=== PATIENT | male | born 1970 | race Caucasian/White ===

== ENCOUNTER 2021-09-04 18:44 | Emergency (ER) | payer BC, OTHER ==
[~2021-09-04] VITALS: Ht 177.8 cm; Wt 79.0 kg
[2021-09-04] MEDS ORDERED: LIDOCAINE 2% JELLY 11ml (GLYDO) ONE (19:04)
[2021-09-04] MEDS ORDERED: LIDOCAINE 2% JELLY 11ml (GLYDO) UR ONE (19:15)
[2021-09-04 19:53] LABS: Urine Bacteria NONE SEEN /hpf (None Seen); Urine Blood 2+ /uL (Negative); Urine Mucus FEW (None Seen); Urine Specific Gravity 1.029 (1.001-1.035); Urine WBC 4 /hpf (0 - 3)
[2021-09-04 21:32] LABS: Basophils # (auto) 0 10 ^3/uL (0-0.2); Basophils % (auto) 0.4 % (0.0-2.0); Eosinophils # (auto) 0.3 10 ^3/uL (0-0.8); Hemoglobin 15.1 g/dL (13.5-17.5); Lymphocytes # (auto) 0.6 10 ^3/uL (0.4-5.4); Lymphocytes % (auto) 7.2 % (10.0-50.0); Mean Corpuscular Hemoglobin 28.5 pg (28.0-32.0); Mean Corpuscular Hgb Conc. 32.1 g/dL (32.0-36.0); Mean Corpuscular Volume 88.7 fL (80.0-100.0); Monocytes # (auto) 0.7 10 ^3/uL (0-1.3); Monocytes % (auto) 7.8 % (0.0-12.0); Neutrophils # (auto) 7.1 10 ^3/uL (1.6-8.6); Neutrophils % (auto) 81.6 % (37.0-80.0); Nucleated Red Blood Cells % 0.1 %; Red Cell Distribution Width 14.6 % (11.8-14.3); White Blood Cell 8.7 10^3/uL (4.4-10.8)
[2021-09-04 21:48] LABS: Albumin 3.9 g/dL (3.4-5.0)
[2021-09-04 21:52] LABS: BUN/Creatinine Ratio 17.3; Bilirubin, Total 0.4 mg/dL (0.2-1.0); Total Protein 7.2 g/dL (6.4-8.2)
[2021-09-05 08:04] VITALS: BP 106/62
== END 2021-09-05 08:47 | disposition home or self-care (01) ==
LOC: ER 18:44
DX: N13.9 Obstructive and reflux uropathy, unspecified (principal); R14.0 Abdominal distension (gaseous)
CPT/HCPCS: 36415; 51702; 74176; 80053; 81001; 85025

== ENCOUNTER 2023-10-28 07:55 | Day surgery (SDC) | payer BC, OTHER ==
[2023-10-26 10:59] LABS: Urine Bacteria None Seen /hpf (None Seen)
[2023-10-26 11:26] LABS: Urine Blood Negative /uL (Negative); Urine Clarity Clear (Clear); Urine Color Yellow (Yellow); Urine Mucus FEW (None Seen); Urine Protein, UAD Negative (Negative); Urine Specific Gravity 1.025 (1.001-1.035); Urine Urobilinogen Normal (Negative); Urine WBC 4 /hpf (0 - 3); Urine pH 5.5 (5.0-9.0)
[2023-10-26 11:31] LABS: Basophils # (auto) 0 10 ^3/uL (0-0.2); Basophils % (auto) 0.4 % (0.0-2.0); Eosinophils # (auto) 0.2 10 ^3/uL (0-0.8); Eosinophils % (auto) 3.1 % (0.0-7.0); Hematocrit 47.3 % (41.0-53.0); Hemoglobin 16.1 g/dL (13.5-17.5); Lymphocytes # (auto) 1.2 10 ^3/uL (0.4-5.4); Lymphocytes % (auto) 16.2 % (10.0-50.0); Mean Corpuscular Hemoglobin 29.9 pg (28.0-32.0); Mean Corpuscular Volume 87.7 fL (80.0-100.0); Monocytes # (auto) 0.7 10 ^3/uL (0-1.3); Monocytes % (auto) 8.8 % (0.0-12.0); Neutrophils # (auto) 5.3 10 ^3/uL (1.6-8.6); Neutrophils % (auto) 71.5 % (37.0-80.0); Nucleated Red Blood Cells % 0.1 %; Platelet Count (auto) 233 10^3/uL (140-450); Red Blood Cells 5.39 10^6/uL (4.5-5.90); Red Cell Distribution Width 14.2 % (11.8-14.3); White Blood Cell 7.4 10^3/uL (4.4-10.8)
[2023-10-26 11:43] LABS: INR 1.03 (0.9-1.15); Partial Thromboplastin Time 24.5 SEC (24.5-34.5); Prothrombin Time 10.9 sec (9.3-11.8)
[2023-10-26 12:17] LABS: Alanine Aminotransferase 23 U/L (7-40); Albumin 4.4 g/dL (3.2-4.8); Alkaline Phosphatase 63 U/L (46-116); Anion Gap 7 (5-15); Aspartate Aminotransferase 15 U/L (13-40); BUN/Creatinine Ratio 10.9 (10.0-20.0); Bilirubin, Total 0.8 mg/dL (0.2-1.0); Blood Urea Nitrogen 10 mg/dL (9-23); Calcium 9.8 mg/dL (8.7-10.4); Carbon Dioxide 28 mmol/L (20-30); Chloride 109 mmol/L (98-107); Glucose 107 mg/dL (74-106); Potassium 4.2 mmol/L (3.5-5.1); Sodium 144 mmol/L (136-145)
[~2023-10-28] VITALS: Ht 175.3 cm; Wt 72.6 kg
[~2023-10-28 07:55] MED LIST: ASPI-543 PO; ATOR-507 PO; BEMP1TAB PO; EZET10TA22 PO; IBUP-1454 PO; METO25TA5 PO
[2023-10-28] MEDS ORDERED: ceFAZolin 2 GM/D5W100ml 100 ML IV ONE (08:33)
[2023-10-28] MEDS ORDERED: ONDANSETRON HCL 4 MG/2 ML VIAL IV ONE (09:30)
[2023-10-28] MEDS ORDERED: MORPHINE SULFATE 4 MG/ML SYR/VIAL IV PRN (09:30)
[2023-10-28] MEDS ORDERED: LIDOCAINE HCL 100 MG/5ML (2%) SYRG INJ IV ONE (09:30)
[2023-10-28] MEDS ORDERED: ePHEDrine SULFATE 50 MG/ML AMP IV PRN (09:30)
[2023-10-28] MEDS ORDERED: PROPOFOL 10 MG/ML 20 ML IV ONE (09:30)
[2023-10-28] MEDS ORDERED: ROCURONIUM 10MG/ML 10ML VIAL IV ONE (09:30)
[2023-10-28] MEDS ORDERED: MIDAZOLAM HCL 2MG/2ML 2ml VIAL (1mg/ml) ONE (09:34)
[2023-10-28] MEDS ORDERED: fentaNYL CITRATE 100 MCG/2 ML VL ONE (10:24)
[2023-10-28] MEDS: LIDOCAINE W/ EPINEPHRINE 1% 20ML VIAL ONE (10:46)
[2023-10-28] MEDS: BUPIVACAINE 0.25% INJ 50ML VIAL ONE (10:46)
[2023-10-28] MEDS ORDERED: SUGAMMADEX 200mg/2ml Vial (100MG/ML) IV ONE (10:49)
[2023-10-28] MEDS ORDERED: ACE3T PO (10:51)
[2023-10-28 10:58] VITALS: PULSE 83; RESP 18; TEMP 97.1; O2SAT 93
[2023-10-28] MEDS: MORPHINE SULFATE 4 MG/ML SYR/VIAL IV PRN (11:33)
[2023-10-28 12:11] VITALS: BP 145/91; PULSE 71; RESP 15; O2SAT 95
== END 2023-10-28 13:28 | disposition home or self-care (01) ==
LOC: SUR 07:55
PROVIDERS: ATTEND Surgery
DX: K40.20 Bilateral inguinal hernia, without obstruction or gangrene, not specified as recurrent (principal); I10 Essential (primary) hypertension; E78.5 Hyperlipidemia, unspecified; Z79.82 Long term (current) use of aspirin; Z79.899 Other long term (current) drug therapy; Z98.890 Other specified postprocedural states
CPT/HCPCS: 36415; 49505; 80053; 81001; 85025; 85610; 85730; 86850; 86900; 86901; 88305; C1781; J2250; J2270; J2704; J3010; J3490